=== PATIENT | male | born 1950 | race Caucasian/White ===

== ENCOUNTER 2022-12-07 08:05 | Day surgery (SDC) | payer OTHER, SELFPAY ==
[2022-12-07] VITALS (7 sets, daily range): BP systolic 114–149; BP diastolic 70–94; PULSE 50–77; RESP 16; TEMP 36.2–36.6; O2SAT 95–98; BMI 30.5
--- NOTE | 2022-12-07 | COLBX_PTH ---
PATIENT: PRIYA ELLER LOC: EN U#:[id number] AGE/SX: 72/M ROOM: RE12/07/[address]: Dr. Tru Powell MD : 1950 BED: DIS: 12/07/2022 SPEC #: [id number] RECD: 12/07/22 14:00 STATUS: ALPA FELECIA #: [id number] PERFECTO: 12/07/22 00:[address]: Tru Powell DEPT: SURGICAL PATHOLOGY RECD BY: Morales Kaur ENTERED: 12/07/22 14:01 SP TYPE: COLON BX OTHR DR: [facility] Tissues: Rectum, NOS Procedures: Surgery Specimen Level IV HEADER OPERATION: Colonoscopy (MAC) with biopsies PRE-OP DIAGNOSIS: History of colon polyps TISSUE SUBMITTED: Rectal polyp biopsy MICROSCOPIC DIAGNOSIS Rectal polyp, biopsy: Hyperplastic polyp. AM:stef 12/08/2022 MICROSCOPIC DESCRIPTION Slides are reviewed. GROSS DESCRIPTION Received in fixative is one container labeled with the patient's name and designated rectal polyp. The specimen consists of two irregular fragments of light sánchez soft tissue that in aggregate measure 0.6 x 0.6 x 0.1 cm. The specimen is totally submitted in one cassette. / AM:stef 12/07/2022 TC:5 CPT: 49731
[2022-12-07] MEDS: Lactated Ringers 1,000 ML 15 ML IV (08:52)
--- NOTE | 2022-12-07 09:46 | PCM.HP.BLA ---
History and Physical Date of Admission: 12/07/22 Date of Service:? 10/18/22 MR#: [id number] Acct: [id number] Name:PRIYA ARRIAZA Rep #: [id number] : 1950 ? ? Provider: Dr. Tru Powell MD Age/Sex:? 72/M ? ? Location: [facility] Status: Signed Intake Vital Signs ? 10/18/2214:20 Height 6 ft 2 in Weight: 238 lb 6 oz BMI 30.6 BP 173/96 H Blood Pressure Location Rt brachial Position Sitting Respiration 16 Pulse 63 Pulse Source Monitor Temp 97.6 F L Temp Source Temporal Pulse Oximetry (%) 96 Oxygen Delivery Method room air Intake Visit Reasons:?COLONOSCOPY Chief Complaint: Colonoscopy consult Body And Frame Technician Required: No Is patient in pain?: No Allergies No Known Allergies Allergy (Unverified 10/18/22 14:22) Medications candesartan-Cilexetil PO QDAY 10/18/22 [History] PFSH Surgical History?(Updated 10/18/22 @ 14:19 by Georgie Zhang) History of colonoscopy (~2016) Family History? Father CancerMother Hypertension Osteoporosis Social History?(Updated 10/18/22 @ 14:20 by Georgie Zhang) Smoking Status:? Former smoker alcohol intake:? never substance use type:? former substance user HPI HPI HPI: Patient is a 72-year-old female who presents for need to schedule surveillance colonoscopy secondary to history of adenomatous polyps.? They are referred for surgical consultation from the [place].? Patient has had prior colonoscopy; he believes that he has had a total of 3 prior scopes.? He confirms that his last scope was January 2016.? He states that polyps were found at each scoping, but he is unable to recall the exact pathologic diagnosis.? Patient has no personal history of colon cancer, inflammatory bowel disease, or diverticulitis. They describe their bowel habits as normal without significant constipation or diarrhea?although they admit to a history of IBS.? They have approximately 2 per day and spend roughly a few minutes on the toilet without significant straining.? They have not noticed recent bleeding or dark stools.? They do regularly take fiber supplements with Metamucil as they have a history of hemorrhoids.? Mr. Alejo denies any recent troubles with bleeding or tissue protrusion. Patient has no family history of colon cancer, inflammatory bowel disease, or diverticulitis.? ? The patient's weight is stable. The patient is not prescribed anticoagulants/blood thinners. Relevant prior abdominal surgical history includes: Unremarkable Patient does not have a significant history of GERD or heartburn.? Specifically, patient states that he will experience occasional reflux depending on the foods that he eats, but this frequency does not exceed more than a few times per year. Patient also raises a question as to whether or not he could have a perineal skin tag removed at the same time as the colonoscopy.? He states this is minimally symptomatic, but at times when there is abrasion to the area becomes painful and uncomfortable.? He states that he has a number of skin tags all over his body and had a number of skin tags removed from his neck throughout the years. ROS General General: No weight change, appetite, fatigue, colon cancer, breast cancer or weakness HEENT HEENT: No difficulty swallowing, eye injury, eye surgery, swollen glands or hoarseness Endo Endocrine: No thyroid disease, diabetes mellitus, thyroid cancer, Hair loss, heat intolerance or cold intolerance Skin Skin: No rash or changing moles Breast Breast: No left breast lump, right breast lump, nipple discharge, breast pain, abnormal mammogram, abnormal US or breast enlargement Musc Musculoskeletal: No back problems, arthritis, rheumatoid arthritis, gout or joint pain Cardio Cardiovascular: Yes high blood pressure; No murmur, pacemaker, heart disease, atrial fibrillation, heart attack, heart stent, palpitations, shortness of breat with exertion or chest pain Psych Psychiatric: No depression, anxiety or hearing voices Resp Respiratory: No shortness of breath, No sleep apnea, No cough, No COPD, No asthma, No emphysema and No wheezing Gastro Gastrointestinal: No abdominal pain, No nausea or vomiting, No diarrhea, No constipation, No blood in stool, Yes acid reflux, Yes hemorrhoids, No ulcers, No gallbladder problem and No black,tarry stools Sim Hematologic: No blood thinners, No blood disorders, No bleeding, No anemia and No blood clots Neuro Neurologic: No system reviewed and no additional complaints, except as documented, No as per HPI, No abnormal gait, No abnormal hearing, No abnormal movements, No abnormal speech, No behavioral changes, No burning sensations, No confusion, No convulsions, No disequilibrium, No dizziness, No localized weakness, No frequent falls, No headache(s), No lack of coordination, No loss of vision, No memory loss, No numbness, No other visual disturbances, No radicular pain, No restless legs, No sensory deficit, No syncope, No tingling, No tremor(s), No weakness and No other Exam Const General: cooperative, healthy appearing, comfortable, no acute distress, well developed and well groomed Orientation: alert, awake and oriented x3 Chest Other: Patient with left chest wall skin tag well pedunculated Resp Effort & Inspection: normal respiratory effort Auscultation: no rales, no rhonchi and no wheezes Cardio Rate: regular rate Rhythm: regular rhythm Heart Sounds: S1 normal and S2 normal GI Inspection: normal to inspection, non-distended and no scars Palpation: soft, no hernias and nontender Other: Patient with a proximately 1 mm skin tag along his right perineum. Assessment and Plan Assessment and Plan (1) History of colon polyps: ?Status:?Acute ?Comment: This is a 72-year-old male with history of colon polyps?reported as adenomatous by secondhand report and historical records?who presents for surveillance colonoscopy.? Patient's last colonoscopy came in 2016 and he was found to have 3 small polyps of the cecum, a few diverticula, and a probable lipoma of the ascending colon.? Given this history, I believe it is reasonable to offer surveillance colonoscopy, however, I would like to obtain official pathology from patient's most recent colonoscopy in 2016.? This has been requested through the [facility].? Procedure was described in detail to the patient and we will seek first mutually you available date/timing. ?Plan: ? Plan will be to complete colonoscopy on first mutually agreeable date under local MAC.? [facility] Patient is also made aware that he will need to have a mechanic welder truck driver with him the day of the procedure. (2) Skin tag of perineum in male: ?Status:?Acute ?Comment: Patient with history of benign skin tags removed from the neck now complains of discomfort from skin tag of his right perineum.? He questions whether or not this could be removed at the same time as colonoscopy.? I have expressed reservations about such as set up for the infection risk.? Mr. Alejo has at least one other bothersome skin tag of his left chest wall.? In order to minimize infection risk and maximize patient comfort, I suggest that these might be best handled in a separate operative procedure under local MAC.? I did offer they could be considered as an office procedure under local anesthetic, but I would be concerned about the level of comfort we would be able to achieve in this exquisitely sensitive area of the body.? Patient wishes to defer this decision until later date. ?Plan: ? Defer excision of skin tags to later date following colonoscopy I have examined the patient and the H&P has been reviewed. There are no clinical changes since date of exam. Patient denies any interval GI changes. He confirms that he completed his prep successfully and his output is now clear. We reviewed the provided results from his last 2 colonoscopies and his related a story about some bleeding following a polypectomy on his first scope. Attention to hemostasis was assured. We will proceed to the endoscopy suite for surveillance colonoscopy as discussed above.
--- NOTE | 2022-12-07 10:53 | OP.CCLET_ITS ---
12/07/2022 [facility] Re : Colonoscopy procedure for [facility] This procedure was performed on November. My impressions and recommendations are as follows: Impressions : - Medium-sized lipoma in the ascending colon. No specimens collected. - Diverticulosis in the sigmoid colon and in the transverse colon. No specimens collected. - A tattoo was seen in the distal sigmoid colon. The tattoo site appeared normal. No specimens collected. - One 5 mm polyp in the rectum. Biopsied. - Internal hemorrhoids. No specimens collected. Recommendations : - Repeat colonoscopy in 3 years for surveillance based on pathology results. - Await pathology results. - Telephone my office for pathology results in 1 week. - Continue present medications. My findings are described in the full procedure note, which is enclosed. If I can be of further assistance, please feel free to contact me at Doctor phone number(s): , Work: . Sincerely, Tru Powell MD 12/07/2022 10:52:28 AM This report has been signed electronically.
--- NOTE | 2022-12-07 10:53 | OP.COLON_ITS ---
Patient Name: Russell Alejo Procedure Date: 12/07/2022 9:43 AM Date of : 1950 Age: 72 Procedure: Colonoscopy Indications: High risk colon cancer surveillance: Personal history of colonic polyps, Surveillance: Personal history of adenomatous polyps on last colonoscopy 3 years ago Providers: Tru Powell MD Medicines: See the Anesthesia note for documentation of the administered medications Patient Profile: Last Colonoscopy: 3 years ago. Complications: No immediate complications. Estimated blood loss: Minimal. Procedure: Pre-Anesthesia Assessment: - The heart rate, respiratory rate, oxygen saturations, blood pressure, adequacy of pulmonary ventilation, and response to care were monitored throughout the procedure. After I obtained informed consent, the scope was passed under direct vision. Throughout the procedure, the patient's blood pressure, pulse, and oxygen saturations were monitored continuously. The colonoscope was introduced through the anus and advanced to the cecum, identified by the ileocecal valve. The colonoscopy was performed without difficulty. The patient tolerated the procedure well. The quality of the bowel preparation was adequate to identify polyps 6 mm and larger in size. Scope In: 9:54:31 AM Scope Withdrawal Time 0 hours 40 minutes 34 seconds Scope Out: 10:41:30 AM Total Procedure Duration Time 0 hours 46 minutes 59 seconds Findings: There was a medium-sized lipoma, 25 mm in diameter, in the ascending colon. No biopsies or other specimens were collected for this exam. Multiple medium-mouthed diverticula were found in the sigmoid colon and transverse colon. No biopsies or other specimens were collected for this exam. A tattoo was seen in the distal sigmoid colon. The tattoo site appeared normal. No biopsies or other specimens were collected for this exam. A 5 mm polyp was found in the rectum. The polyp was sessile. Biopsies were taken with a cold forceps for histology. Estimated blood loss was minimal. Internal hemorrhoids were found during retroflexion. The hemorrhoids were Grade I (internal hemorrhoids that do not prolapse). No biopsies or other specimens were collected for this exam. Impression: - Medium-sized lipoma in the ascending colon. No specimens collected. - Diverticulosis in the sigmoid colon and in the transverse colon. No specimens collected. - A tattoo was seen in the distal sigmoid colon. The tattoo site appeared normal. No specimens collected. - One 5 mm polyp in the rectum. Biopsied. - Internal hemorrhoids. No specimens collected. Recommendation: - Repeat colonoscopy in 3 years for surveillance based on pathology results. - Await pathology results. - Telephone my office for pathology results in 1 week. - Continue present medications. Procedure Code(s): --- Professional --- 78451, Colonoscopy, flexible; with biopsy, single or multiple Diagnosis Code(s): --- Professional --- D17.5, Benign lipomatous neoplasm of intra-abdominal organs K64.0, First degree hemorrhoids K62.1, Rectal polyp Z86.010, Personal history of colonic polyps K57.30, Diverticulosis of large intestine without perforation or abscess without bleeding CPT copyright 2017 [employer]. All rights reserved. The codes documented in this report are preliminary and upon materials planning manager review may be revised to meet current compliance requirements. Tru Powell MD 12/07/2022 10:52:28 AM This report has been signed electronically. Number of Addenda: 0 Note Initiated On: 12/07/2022 9:43 AM
== END 2022-12-07 11:37 | disposition home or self-care (01) ==
LOC: EN 08:06 → AC 08:07
PROVIDERS: Visit Provider Surgery
PROC: 0DJD8ZZ Inspection of Lower Intestinal Tract, Via Natural or Artificial Opening Endoscopic (ICD-10-PCS; CPT 45378; principal; 2022-12-07 09:25)
DX: Z12.11 Encounter for screening for malignant neoplasm of colon (principal); K57.30 Diverticulosis of large intestine without perforation or abscess without bleeding; K62.1 Rectal polyp; Z86.010 Personal history of colon polyps; K64.0 First degree hemorrhoids; Z87.891 Personal history of nicotine dependence; D17.5 Benign lipomatous neoplasm of intra-abdominal organs
CPT/HCPCS: 45380; 88305; J7120; J2405